=== PATIENT | male | born 1935 | race Asian ===

== ENCOUNTER 2020-03-29 21:02 | Inpatient (IN) | payer MEDICARE, MEDICAID ==
[~2020-03-29] VITALS: Ht 162.6 cm; Wt 61.7 kg
--- NOTE | 2020-03-29 21:15 | NUR ---
PT BIBDAUGHTER C/O COUGH AND LOW GRADE FEVER X3 DAYS. PER DAUGHTER, PT HAS ALSO BEEN WEEK FOR THE PAST FEW DAYS AND HAD NEAR SYNCOPE EPISODE CHAIR MECHANIC. PT AAOX4. VITAL SIGNS STABLE. O2 SAT 96% ROOM AIR. RESPIRATIONS EVEN AND UNLABORED. SKIN WARM AND INTACT. NO ACUTE DISTRESS NOTED AT THIS TIME. PLACED ON MONITOR AND PULSE OX, WILL CONTINUE TO MONITOR.
--- NOTE | 2020-03-29 21:48 | NUR ---
COVID SWAB COLLECTED AND SENT TO LAB
--- NOTE | 2020-03-29 21:58 | NUR ---
RADIOLOGY AT BEDSIDE FOR CXR
--- NOTE | 2020-03-29 22:00 | NUR ---
IV INITIATED RAC 20G. LABS DRAWN FROM SITE. BOBBIN WINDER AT BEDSIDE FOR COLLECTION. IV INTACT AND PATENT, PLACED ON SALINE LOCK
[2020-03-29 22:12] LABS: BASOPHILS % (AUTO) 0.1 % (0.0-2.0); HEMATOCRIT 40 % (39-51); HEMOGLOBIN 12.3 g/dL (13.5-17.5); LYMPHOCYTES % (AUTO) 15.3 % (20.0-44.0); MEAN CORPUSCULAR HGB CONC 31 g/dl (31.0-36.0); MEAN CORPUSCULAR VOLUME 69 fL (80-96); MONOCYTES # (AUTO) 0.5 /CMM (0.1-1.30); MONOCYTES % (AUTO) 7.9 % (2.0-12.0); NEUTROPHILS # (AUTO) 5.1 /CMM (1.8-8.9); NEUTROPHILS % (AUTO) 76.7 % (43.0-81.0); PLATELET COUNT (AUTO) 113 /CMM (150-450); RED BLOOD CELL COUNT(AUTO) 5.78 MIL/uL (4.5-6.0); WHITE BLOOD COUNT (AUTO) 6.6 K/uL (4.3-11.0)
[2020-03-29 22:46] LABS: CALCIUM, SERUM 8.5 mg/dL (8.5-10.1); CARBON DIOXIDE 26 mmol/L (21-32); CHLORIDE 95 mmol/L (98-107); CREATININE 1.6 mg/dL (0.6-1.3); GLUCOSE 149 mg/dL (74-106); POTASSIUM 4.5 mmol/L (3.5-5.1); SODIUM SERUM 129 mmol/L (136-145); UREA NITROGEN, BLOOD 31 mg/dL (7-18)
[2020-03-29 22:52] LABS: ALANINE AMINOTRANSFERASE 43 U/L (12-78); ALBUMIN 3.3 g/dL (3.4-5.0); ALKALINE PHOSPHATASE 81 U/L (46-116); ASPARTATE AMINOTRANSFERASE 46 U/L (15-37); BILIRUBIN,DIRECT 0.2 mg/dL (0.0-0.2); BILIRUBIN,TOTAL 0.3 mg/dL (0.2-1.0); LIPASE 221 U/L (73-393); TOTAL PROTEIN, SERUM 8.3 g/dL (6.4-8.2)
[2020-03-29 22:53] LABS: LYMPHOCYTES % (MANUAL) 5 % (16-48); MONOCYTES % (MANUAL) 8 % (0-11.0); NEUTROPHILS % (MANUAL) 87 (42-76)
[2020-03-29] MEDS ORDERED: IV NS 0.9% 1,000 ML IV PRN ×2 (23:00→23:30)
--- NOTE | 2020-03-29 23:01 | NUR ---
LAB CALLED REGARDING COVID (+) RESULT.
[2020-03-29] MEDS ORDERED: MAG HYDROX/AL HYDROX/SIMETH 30 ML UDC PO PRN (23:30)
[2020-03-29] MEDS ORDERED: ONDANSETRON HCL/PF 4 MG/2 ML VIAL IVP PRN (23:30)
[2020-03-29] MEDS ORDERED: Z GUARD REMEDY 2 OZ OINT TP PRN (23:30)
[2020-03-29] MEDS ORDERED: ZOLPIDEM TARTRATE 5 MG TABLET PO PRN (23:30)
[2020-03-29] MEDS ORDERED: HYDROCODONE/APAP 5/325MG TABLET PO PRN (23:30)
[2020-03-29] MEDS ORDERED: ACETAMINOPHEN 325 MG TABLET PO PRN (23:30)
[2020-03-29] MEDS ORDERED: DEXTROSE 50%-WATER 50 ML DISP.SYRIN IV PRN (23:30)
--- NOTE | 2020-03-29 23:36 | NUR ---
BED ASSIGNMENT 209-1
--- NOTE | 2020-03-29 23:44 | NUR ---
REPORT GIVEN TO KEY MCKEON FOR HEATHER; PT WILL BE TRANSPORTED TO 2ND FLOOR
[2020-03-29] MEDS ORDERED: ATOR10TA PO (23:57)
[2020-03-29] MEDS ORDERED: LISI-603 PO (23:57)
[2020-03-29] MEDS ORDERED: ICOS1CAP PO (23:57)
[2020-03-30 00:06] LABS: C-REACTIVE PROTEIN 18.4 mg/dL (0.0-0.9)
[2020-03-30 00:17] LABS: D-DIMER 1.24 mg/L(FEU (0.17-0.50)
[2020-03-30] MEDS ORDERED: DEXAMETHASONE SOD PHOSPHATE 10 MG/ML VIAL IV ONE (00:30)
--- NOTE | 2020-03-30 00:47 | NUR ---
PT TRANSPORTED TO 2ND FLOOR
--- NOTE | 2020-03-30 00:50 | NUR ---
TELE/RN ADMITTING NOTES: REPORT GIVEN BY ER NURSE SHIRA. PT. ADMITTED ON THE FLOOR AT 0050. A/OX4, VERBALLY RESPONSIVE AND ABLE TO MAKE NEEDS KNOWN. VERY HARD OF HEARING BELTRAN. EARS. NO C/O PAIN AT THIS TIME. SKIN INTACT, JUST SCATTERED MOLES. PT IS STABLE AT THIS TIME. INITIAL VS WNL. SAFETY MEASURES INITIATED, BED IN LOW, LOCKED POSITION WITH SR UPX2. BED ALARM ON. WILL CONTINUE TO MONITOR ACCORDINGLY.
[2020-03-30 01:00] VITALS: BP 137/75
--- NOTE | 2020-03-30 01:00 | NUR ---
TELE/RN NOTES: ON TELE MONITORING WITH READING OF SR. IV SITE ON THE RIGHT AC #20G. INTACT AND PATENT.
[2020-03-30] MEDS: HEPARIN SODIUM, PORCINE 5000 UNITS/1 ML VIAL SQ SCH ×3 (01:10→22:19)
[2020-03-30 04:00] VITALS: BP 140/71
[2020-03-30] MEDS: BLOOD SUGAR DIAGNOSTIC 1 EACH STRIP IN SCH ×4 (06:47→22:17)
[2020-03-30] MEDS: INSULIN REGULAR, HUMAN 100 UNIT/ML 3 ML VIAL SQ PRN ×4 (06:49→22:19)
--- NOTE | 2020-03-30 07:15 | NUR ---
RN Note Patient Received. Patient is noted in bed, awake, alert and oriented x4. Breathing even and non labored and continues on room air. Patient is noted with IV site to RAC 20G noted to be patent and intact. Patient continues on tele monitor and noted to be NSR. Skin is noted intact. All needs attended to promptly. Will continue plan of care as ordered.
[2020-03-30 07:16] LABS: BASOPHILS % (AUTO) 0.1 % (0.0-2.0); HEMATOCRIT 36 % (39-51); HEMOGLOBIN 11.3 g/dL (13.5-17.5); LYMPHOCYTES # (AUTO) 0.7 /CMM (0.8-4.8); LYMPHOCYTES % (AUTO) 13.1 % (20.0-44.0); MEAN CORPUSCULAR HGB CONC 31 g/dl (31.0-36.0); MEAN CORPUSCULAR VOLUME 69 fL (80-96); MONOCYTES # (AUTO) 0.2 /CMM (0.1-1.30); MONOCYTES % (AUTO) 3.6 % (2.0-12.0); NEUTROPHILS # (AUTO) 4.8 /CMM (1.8-8.9); NEUTROPHILS % (AUTO) 83.2 % (43.0-81.0); PLATELET COUNT (AUTO) 104 /CMM (150-450); RED BLOOD CELL COUNT(AUTO) 5.29 MIL/uL (4.5-6.0); WHITE BLOOD COUNT (AUTO) 5.7 K/uL (4.3-11.0)
[2020-03-30 07:35] LABS: BILIRUBIN,URINE NEGATIVE (NEGATIVE); COLOR,URINE YELLOW (YELLOW); LEUKOCYTE ESTERASE ,URINE NEGATIVE (NEGATIVE); NITRITE, URINE NEGATIVE (NEGATIVE); PH,URINE 5.5 (5.0-8.0); PROTEIN,URINE 100 mg/dl (NEGATIVE); UGLUCOSE NEGATIVE (NEGATIVE); UROBILINOGEN,URINE 0.2 EU/dL (0.2)
[2020-03-30 07:37] LABS: CALCIUM, SERUM 7.8 mg/dL (8.5-10.1); CREATININE 1.3 mg/dL (0.6-1.3); MAGNESIUM 1.8 mg/dL (1.8-2.4); PHOSPHORUS 2.9 mg/dL (2.5-4.9); POTASSIUM 4.6 mmol/L (3.5-5.1)
[2020-03-30 08:00] VITALS: BP 120/72
--- NOTE | 2020-03-30 08:00 | NUR ---
TELE/RN CLOSING NOTES: PT. REMAINS STABLE. NO SIGNIFICANT CHANGES IN CONDITION. ALL DUE MEDS GIVEN ORDERED. ALL NURSING NEEDS MET AND RENDERED, WILL CONTINUE PLAN OF CARE, ENDORSED TO DAY SHIFT FOR HEATHER.
[2020-03-30 08:20] LABS: BACTERIA,URINE Rare /HPF (None Seen); RBC,URINE 0-2 /HPF (0-2); SQUAMOUS EPITHELIAL CELL,UR Rare /HPF (None Seen); WBC,URINE 0-2 /HPF (0-3)
[2020-03-30] MEDS: GLUCERNA SHAKE 237 ML CAN PO SCH ×2 (09:59→17:09)
[2020-03-30 10:22] LABS: LYMPHOCYTES % (MANUAL) 10 % (16-48); MONOCYTES % (MANUAL) 3 % (0-11.0); NEUTROPHILS % (MANUAL) 87 (42-76)
[2020-03-30 12:00] VITALS: BP 127/60
[2020-03-30 16:00] VITALS: BP 109/55
--- NOTE | 2020-03-30 19:42 | NUR ---
RN NOTE Patient is noted in bed, awake, alert and oriented x4. Patient is able to make needs known. Breathing is even and non labored and continues on room air. No signs of acute distress or shortness of breath noted. Patient is noted with IV site to RAC 20G noted to be patent and intact. No signs of infiltration noted. No fever noted. All medications administered as per order. Accu checks rendered with insulin administered as per order. Safety precautions in place with bed in lowest position and locked. Call light within reach. All needs attended to promptly. Will endorse to continue plan of care as ordered.
[2020-03-30 20:00] VITALS: BP 114/63
[2020-03-31] VITALS (7 sets, daily range): BP systolic 124–141; BP diastolic 60–93
[2020-03-31] MEDS: BLOOD SUGAR DIAGNOSTIC 1 EACH STRIP IN SCH ×4 (07:09→22:35)
--- NOTE | 2020-03-31 07:47 | NUR ---
TECHNICAL LEAD OPENING NOTES RECEIVED PATIENT IN BED, AWAKE, A/O X4. PATIENT ON ROOM AIR AT THIS TIME; BREATHING IS EVEN AND UNLABORED, NO SOB NOTED AT THIS TIME. NO COMPLAINS OF PAIN. RAC IV ACCESS G # 20 PRESENT AND INTACT. SAFETY PRECAUTIONS IN PLACE; BED IN LOW POSITION AND LOCKED, RAILS UP X2, CALL LIGHT WITHIN REACH. WILL CONTINUE TO MONITOR PATIENT.
[2020-03-31 08:11] LABS: CALCIUM, SERUM 8.9 mg/dL (8.5-10.1); CREATININE 1.2 mg/dL (0.6-1.3); POTASSIUM 4.6 mmol/L (3.5-5.1)
[2020-03-31] MEDS: GLUCERNA SHAKE 237 ML CAN PO SCH ×2 (08:26→16:13)
[2020-03-31] MEDS: HEPARIN SODIUM, PORCINE 5000 UNITS/1 ML VIAL SQ SCH ×2 (08:30→21:36)
--- NOTE | 2020-03-31 11:30 | NUR ---
PIT CLERK NOTES PATIENT DEVELOPED FEVER 102 HR 112 O2 INCREASED TO 4 LPM VIA NASAL CANULA. PRN TYLENOL GIVEN.
[2020-03-31] MEDS: DOXYCYCLINE HYCLATE (100 MG) 100 MG TABLET PO SCH ×2 (13:02→21:32)
[2020-03-31] MEDS: DEXAMETHASONE SOD PHOSPHATE 10 MG/ML VIAL IV SCH (13:02)
[2020-03-31] MEDS: CEFTRIAXONE 1 G in IV D5W 50 ML IV SCH (13:38)
--- NOTE | 2020-03-31 19:17 | NUR ---
HONING MACHINE TRY OUT SETTER CLOSING NOTES PATIENT IN BED, AWAKE, A/O X4, RESTING. PATIENT ON OXYGEN THERAPY AT 4 LPM VIA NASAL CANULA; BREATHING IS EVEN AND UNLABORED, NO SOB NOTED AT THIS TIME. NO COMPLAINS OF PAIN DURING SHIFT. RAC IV ACCESS G # 20 PRESENT AND INTACT. ALL NEEDS ATTENDED THROUGHOUT THE DAY. SAFETY PRECAUTIONS IN PLACE; BED IN LOW POSITION AND LOCKED, RAILS UP X2, CALL LIGHT WITHIN REACH. WILL ENDORSE TO C UNIX DEVELOPER NURSE.
--- NOTE | 2020-03-31 19:30 | NUR ---
PNEUMATIC DEICER INSPECTOR OPENING NOTES RECIEVED PATIENT IN BED. A/OX3. ON OXYGEN 4L/MIN VIA NASAL CANNULA, RESPIRATIONS ARE EVEN AND UNLABORED. NO S/S SOB NOTED. NO C/O PAIN AT THIS TIME. EXTERNAL TELE MONITOR READS SINUS RHYTHM HR 66. IN NO APPARENT DISTRESS. IV ACCESS IN RAC#20 PATENT AND SALINE LOCKED. BED IS LOW AND LOCKED, HOB ELEVATED IN SEMI FOWLERS, SIDE RAIL UP X2, CALL LIGHT WITHIN REACH. BED ALARM ON. WILL CONTINUE TO MONITOR T/O SHIFT.
--- NOTE | 2020-03-31 21:00 | NUR ---
telesales advisor note patient moved from room 209-1 to room 202. patient is a fall risk and hard of hearing. all belongings moved with patient.
[2020-03-31] MEDS: INSULIN REGULAR, HUMAN 100 UNIT/ML 3 ML VIAL SQ PRN (22:41)
[2020-04-01] VITALS: BP 153/85
[2020-04-01 04:00] VITALS: BP 131/64
--- NOTE | 2020-04-01 06:43 | NUR ---
FUEL CELL BATTERY TECHNICIAN CLOSING NOTES PATIENT RESTING IN BED. A/OX3. REMAINS ON OXYGEN 4L/MIN VIA NASAL CANNULA,NO RESP DISTRES. NO PAIN. EXTERNAL TELE MONITOR READS SINUS RHYTHM. NO DISTRESS. IV ACCESS MAINTAINED IN RAC#20 . BED REMAINS LOW AND LOCKED, HOB ELEVATED IN SEMI FOWLERS, SIDE RAIL UP X2, CALL LIGHT WITHIN REACH. BED ALARM ON. WILL ENDORSE TO NEXT SHIFT.
[2020-04-01] MEDS: BLOOD SUGAR DIAGNOSTIC 1 EACH STRIP IN SCH ×4 (06:54→22:17)
--- NOTE | 2020-04-01 06:55 | NUR ---
telephone operator note patient blood sugar 151. refuse inulsin coverage. he explained his doctor wants his blood sugar 80-150. will endorse to next shift.
[2020-04-01 07:10] LABS: HEMATOCRIT 39 % (39-51); HEMOGLOBIN 12.2 g/dL (13.5-17.5); LYMPHOCYTES # (AUTO) 0.7 /CMM (0.8-4.8); LYMPHOCYTES % (AUTO) 4.5 % (20.0-44.0); MEAN CORPUSCULAR HGB CONC 31 g/dl (31.0-36.0); MEAN CORPUSCULAR VOLUME 68 fL (80-96); MONOCYTES # (AUTO) 1.1 /CMM (0.1-1.30); MONOCYTES % (AUTO) 6.3 % (2.0-12.0); NEUTROPHILS # (AUTO) 14.8 /CMM (1.8-8.9); NEUTROPHILS % (AUTO) 89.2 % (43.0-81.0); PLATELET COUNT (AUTO) 168 /CMM (150-450); RED BLOOD CELL COUNT(AUTO) 5.71 MIL/uL (4.5-6.0); WHITE BLOOD COUNT (AUTO) 16.6 K/uL (4.3-11.0)
--- NOTE | 2020-04-01 07:30 | NUR ---
PROTECTIVE CLOTHING ISSUER NOTES PT IN BED, AWAKE, ALERT AND ORIENTED, NO COMPLAINT OF PAIN, NOT IN DISTRESS, ON O2 AT 4LPM VIA N/C, NO SOB NOTED, CALL LIGHT WITHIN REACH, NEEDS ATTENDED.
[2020-04-01 07:35] LABS: CALCIUM, SERUM 8.7 mg/dL (8.5-10.1); POTASSIUM 4.4 mmol/L (3.5-5.1)
[2020-04-01 08:14] VITALS: BP 130/77
[2020-04-01] MEDS: CEFTRIAXONE 1 G in IV D5W 50 ML IV SCH (09:50)
[2020-04-01] MEDS: HEPARIN SODIUM, PORCINE 5000 UNITS/1 ML VIAL SQ SCH ×2 (09:51→22:25)
[2020-04-01] MEDS: DEXAMETHASONE SOD PHOSPHATE 10 MG/ML VIAL IV SCH (09:51)
[2020-04-01] MEDS: DOXYCYCLINE HYCLATE (100 MG) 100 MG TABLET PO SCH ×2 (09:51→22:25)
[2020-04-01] MEDS: GLUCERNA SHAKE 237 ML CAN PO SCH ×2 (10:06→17:00)
[2020-04-01 11:10] LABS: LYMPHOCYTES % (MANUAL) 3 % (16-48); MONOCYTES % (MANUAL) 5 % (0-11.0); NEUTROPHILS % (MANUAL) 92 (42-76)
[2020-04-01] MEDS: INSULIN REGULAR, HUMAN 100 UNIT/ML 3 ML VIAL SQ PRN ×3 (12:11→22:33)
[2020-04-01 12:13] VITALS: BP_SYST 119; BP_SYST 146; BP_DIAS 79; BP_DIAS 86
[2020-04-01 16:29] VITALS: BP 122/70
--- NOTE | 2020-04-01 18:30 | NUR ---
BUTTON STATION WORKER NOTES PT IN BED, RESTING, NO SIGN OF PAIN, NO SOB NOTED, SEEN BY DR. MEDINA, SEEN BY ID, PLAN OF CARE DISCUSSED WITH DAUGHTER MARTIN OVER THE PHONE, VERBALIZED UNDERSTANDING, ASSISTED WITH MEALS, PM CARE PROVIDED.
--- NOTE | 2020-04-01 19:30 | NUR ---
CEMENT CRUSHER OPERATOR OPENING NOTES RECEIVED PATIENT IN BED. A/OX3. ON OXYGEN 4L/MIN VIA NASAL CANNULA, RESPIRATIONS ARE EVEN AND UNLABORED. NO S/S SOB NOTED. NO C/O PAIN AT THIS TIME. EXTERNAL TELE MONITOR READS SINUS RHYTHM HR 89. IN NO APPARENT DISTRESS. IV ACCESS IN RAC#20 RUNNING NS @20ML/HR. BED IS LOW AND LOCKED, HOB ELEVATED IN SEMI FOWLERS, SIDE RAIL UP X2, CALL LIGHT WITHIN REACH. WILL CONTINUE TO MONITOR T/O SHIFT.
[2020-04-01 20:00] VITALS: BP 125/76
[2020-04-02] VITALS: BP_SYST 125; BP_DIAS 74; BP_DIAS 78
[2020-04-02 04:00] VITALS: BP 132/69
--- NOTE | 2020-04-02 06:20 | NUR ---
satellite television installer note daughter Romina called to inform me to endorse to day shift RN to tell infectious disease doctor that she is ok with her father getting investigational drug remdesivir and convolescent plasma. she also wanted to inform us that patient needs thickener with water because he chokes on water and they use thickener at home. will endorse to day.
[2020-04-02 06:35] LABS: BASOPHILS % (AUTO) 0.1 % (0.0-2.0); HEMATOCRIT 40 % (39-51); HEMOGLOBIN 12.5 g/dL (13.5-17.5); LYMPHOCYTES # (AUTO) 0.8 /CMM (0.8-4.8); LYMPHOCYTES % (AUTO) 4.4 % (20.0-44.0); MEAN CORPUSCULAR HGB CONC 31 g/dl (31.0-36.0); MEAN CORPUSCULAR VOLUME 69 fL (80-96); MONOCYTES # (AUTO) 1.3 /CMM (0.1-1.30); MONOCYTES % (AUTO) 7.2 % (2.0-12.0); NEUTROPHILS # (AUTO) 15.7 /CMM (1.8-8.9); NEUTROPHILS % (AUTO) 88.3 % (43.0-81.0); PLATELET COUNT (AUTO) 190 /CMM (150-450); RED BLOOD CELL COUNT(AUTO) 5.86 MIL/uL (4.5-6.0); WHITE BLOOD COUNT (AUTO) 17.8 K/uL (4.3-11.0)
[2020-04-02] MEDS: BLOOD SUGAR DIAGNOSTIC 1 EACH STRIP IN SCH ×4 (06:36→22:21)
[2020-04-02] MEDS: INSULIN REGULAR, HUMAN 100 UNIT/ML 3 ML VIAL SQ PRN ×4 (06:41→22:23)
--- NOTE | 2020-04-02 07:10 | NUR ---
TRAINING MGR CLOSING NOTES PATIENT RESTING IN BED. A/OX3. REMAINS ON OXYGEN 4L/MIN VIA NASAL CANNULA,NO RESP DISTRESS. NO PAIN. EXTERNAL TELE MONITOR READS SINUS RHYTHM. NO DISTRESS. IV ACCESS MAINTAINED IN RAC#20 RUNNING NS@20ML/HR. BED REMAINS LOW AND LOCKED, HOB ELEVATED IN SEMI FOWLERS, SIDE RAIL UP X2, CALL LIGHT WITHIN REACH. BED ALARM ON. WILL ENDORSE TO NEXT SHIFT.
--- NOTE | 2020-04-02 07:30 | NUR ---
PT RECEIVED RESTING COMFORTABLY IN BED WITH EYES CLOSED. NO S/S OR C/O PAIN OR DISTRESS NOTED. SIDE RAILS UP X2, CALL LIGHT LEFT WITHIN REACH. WILL CONTINUE PLAN OF CARE.
[2020-04-02] MEDS: CEFTRIAXONE 1 G in IV D5W 50 ML IV SCH (09:04)
[2020-04-02] MEDS: HEPARIN SODIUM, PORCINE 5000 UNITS/1 ML VIAL SQ SCH (09:05)
[2020-04-02] MEDS: DOXYCYCLINE HYCLATE (100 MG) 100 MG TABLET PO SCH ×2 (09:05→21:14)
[2020-04-02] MEDS: DEXAMETHASONE SOD PHOSPHATE 10 MG/ML VIAL IV SCH (09:05)
[2020-04-02] MEDS: GLUCERNA SHAKE 237 ML CAN PO SCH ×2 (10:21→17:22)
--- NOTE | 2020-04-02 11:00 | NUR ---
MAINTENANCE MECHANIC AT BEDSIDE
[2020-04-02 11:07] LABS: ABG BASE EXCESS -1.9 mmol/L; ABG OXYGEN SATURATION 86.6 % (92.0-98.5); ABG PCO2 31.8 mmHg (35.0-45.0); ABG PH 7.446 (7.350-7.450); ABG PO2 47.7 mmHg (75.0-100.0); AaDO2 172.1 mmHg; COHb 0.7 % (0.5-1.5); MetHb 0.4 % (0.0-1.5); O2Hb 85.6 % (94.0-97.0); SITE, ABG Left Radial; VENT MODE, BG 4L NC
--- NOTE | 2020-04-02 11:15 | NUR ---
AT BEDSIDE DR TAYLOR
[2020-04-02] MEDS ORDERED: ACETAMINOPHEN 650 MG/20.3 ML UDC PO ONE (16:00)
[2020-04-02] MEDS ORDERED: diphenhydrAMINE HCL 50 MG/ML VIAL IV ONE (16:00)
[2020-04-02 16:05] LABS: ABG BASE EXCESS 0.6 mmol/L; ABG OXYGEN SATURATION 92.8 % (92.0-98.5); ABG PCO2 35.6 mmHg (35.0-45.0); ABG PH 7.451 (7.350-7.450); AaDO2 325.6 mmHg; COHb 0.4 % (0.5-1.5); MetHb 0.3 % (0.0-1.5); O2Hb 92.2 % (94.0-97.0); SITE, ABG Left Radial; VENT MODE, BG 10L SIMPLE MASK
[2020-04-02 16:16] LABS: ALBUMIN 2.4 g/dL (3.4-5.0); BILIRUBIN,DIRECT 0.1 mg/dL (0.0-0.2); BILIRUBIN,TOTAL 0.2 mg/dL (0.2-1.0); CALCIUM, SERUM 8.7 mg/dL (8.5-10.1); CREATININE 1.2 mg/dL (0.6-1.3); POTASSIUM 4.4 mmol/L (3.5-5.1); TOTAL PROTEIN, SERUM 7.7 g/dL (6.4-8.2)
[2020-04-02] MEDS ORDERED: APIXABAN 2.5 MG TABLET PO SCH (17:00)
[2020-04-02] MEDS ORDERED: TOCILIZUMAB 400 MG in IV NS 0.9% 80 ML IV ONE (17:00)
--- NOTE | 2020-04-02 18:06 | NUR ---
CHANGE OF SHIFT REPORT PT RESTING COMFORTABLY IN BED WITH EYES CLOSED. NO S/S OR C/O PAIN OR DISTRESS NOTED. SIDE RAILS UP X2, CALL LIGHT LEFT WITHIN REACH. PT KEPT CLEAN, DRY, AND COMFORTABLE. NO SIGNIFICANT CHANGES SINCE PREVIOUS SHIFT. WILL GIVE REPORT TO JEREMIAH MCKEON.
--- NOTE | 2020-04-02 19:00 | NUR ---
RN NOTE RECEIVED PATIENT IN BED, ON SEMI MARIE'S. PATIENT IN NO S/SX OF ACUTE DISTRESS AT THIS TIME. PATIENT'S BREATHING IS EVEN AND UNLABORED. PATIENT IS ON 10 L OF OXYGEN VIA OXYGEN MASK, TOLERATING WELL, O2 SATURATION AT 95%. PATIENT ON TELE MONITOR READING SR, HR IS 82. NOTED IV SITE AT RAC 20G, AND R WRIST 20G, PATENT AND FLUSHING WELL, NO S/S OF INFECTION OR INFILTRATION. PATIENT IS CONTINENT WITH URINAL AT BEDSIDE, MODERATE AMOUNT OF CLEAR, MARIA DOLORES URINE WAS NOTED. SAFETY MEASURES IMPLEMENTED PER PROTOCOL. PATIENT BED ALARM IS ON. HEAD OF BED ELEVATED. BED IS LOCKED, IN LOWEST POSITION AND SIDE RAILS UP. CALL LIGHT WITHIN REACH OF THE PATIENT. WILL CONTINUE TO MONITOR AND REASSESS FOR ANY CHANGES.
[2020-04-02 20:00] VITALS: BP 123/73
[2020-04-02] MEDS ORDERED: ENOXAPARIN SODIUM 40 MG/0.4 ML DISP.SYRIN SQ SCH (21:00)
[2020-04-02 21:32] LABS: BILIRUBIN,URINE NEGATIVE (NEGATIVE); COLOR,URINE YELLOW (YELLOW); LEUKOCYTE ESTERASE ,URINE NEGATIVE (NEGATIVE); NITRITE, URINE NEGATIVE (NEGATIVE); PH,URINE 5.5 (5.0-8.0); PROTEIN,URINE 30 mg/dl (NEGATIVE); UGLUCOSE 250 MG/DL mg/dL (NEGATIVE); UROBILINOGEN,URINE 0.2 EU/dL (0.2)
[2020-04-02 21:38] LABS: BACTERIA,URINE Few /HPF (None Seen); RBC,URINE 0-2 /HPF (0-2); SQUAMOUS EPITHELIAL CELL,UR Few /HPF (None Seen); WBC,URINE 0-2 /HPF (0-3); YEAST,URINE Few /HPF (None Seen)
[2020-04-02] MEDS: PANTOPRAZOLE 40 MG VIAL IV SCH (21:57)
[2020-04-02 22:46] LABS: BASOPHILS % (AUTO) 0.1 % (0.0-2.0); HEMATOCRIT 37 % (39-51); HEMOGLOBIN 11.3 g/dL (13.5-17.5); LYMPHOCYTES # (AUTO) 0.5 /CMM (0.8-4.8); LYMPHOCYTES % (AUTO) 3.5 % (20.0-44.0); MEAN CORPUSCULAR HGB CONC 31 g/dl (31.0-36.0); MEAN CORPUSCULAR VOLUME 69 fL (80-96); MONOCYTES % (AUTO) 6.5 % (2.0-12.0); NEUTROPHILS # (AUTO) 13.2 /CMM (1.8-8.9); NEUTROPHILS % (AUTO) 89.9 % (43.0-81.0); PLATELET COUNT (AUTO) 197 /CMM (150-450); RED BLOOD CELL COUNT(AUTO) 5.36 MIL/uL (4.5-6.0); WHITE BLOOD COUNT (AUTO) 14.7 K/uL (4.3-11.0)
[2020-04-03] VITALS (13 sets, daily range): BP systolic 114–144; BP diastolic 60–83
[2020-04-03 06:42] LABS: ALBUMIN 2.2 g/dL (3.4-5.0); BILIRUBIN,TOTAL 0.3 mg/dL (0.2-1.0); CALCIUM, SERUM 8.5 mg/dL (8.5-10.1); CREATININE 1.2 mg/dL (0.6-1.3); POTASSIUM 4.3 mmol/L (3.5-5.1); TOTAL PROTEIN, SERUM 7.2 g/dL (6.4-8.2)
[2020-04-03 06:49] LABS: BASOPHILS % (AUTO) 0.1 % (0.0-2.0); HEMATOCRIT 38 % (39-51); HEMOGLOBIN 11.7 g/dL (13.5-17.5); LYMPHOCYTES # (AUTO) 0.7 /CMM (0.8-4.8); LYMPHOCYTES % (AUTO) 4.3 % (20.0-44.0); MEAN CORPUSCULAR HGB CONC 31 g/dl (31.0-36.0); MEAN CORPUSCULAR VOLUME 69 fL (80-96); MONOCYTES # (AUTO) 1.2 /CMM (0.1-1.30); MONOCYTES % (AUTO) 7.9 % (2.0-12.0); NEUTROPHILS # (AUTO) 13.8 /CMM (1.8-8.9); NEUTROPHILS % (AUTO) 87.7 % (43.0-81.0); PLATELET COUNT (AUTO) 227 /CMM (150-450); RED BLOOD CELL COUNT(AUTO) 5.53 MIL/uL (4.5-6.0); WHITE BLOOD COUNT (AUTO) 15.8 K/uL (4.3-11.0)
[2020-04-03] MEDS: INSULIN REGULAR, HUMAN 100 UNIT/ML 3 ML VIAL SQ PRN ×4 (07:29→21:08)
[2020-04-03] MEDS: BLOOD SUGAR DIAGNOSTIC 1 EACH STRIP IN SCH ×4 (07:33→21:06)
--- NOTE | 2020-04-03 08:00 | NUR ---
GUEST HISTORY CLERK OPENING NOTES RECEIVED PATIENT IN BED. A/OX3. ON OXYGEN 4L/MIN VIA NASAL CANNULA, O2 SAT 88-90% RESPIRATIONS ARE EVEN AND UNLABORED. NO S/S SOB NOTED. NO C/O PAIN AT THIS TIME. EXTERNAL TELE MONITOR READS SINUS RHYTHM HR 77. IN NO APPARENT DISTRESS. IV ACCESS IN RAC#20 .BED IS LOW AND LOCKED, HOB ELEVATED IN SEMI FOWLERS, SIDE RAIL UP X2, CALL LIGHT WITHIN REACH. WILL CONTINUE TO MONITOR T/O SHIFT.
[2020-04-03] MEDS: CEFTRIAXONE 1 G in IV D5W 50 ML IV SCH (09:46)
[2020-04-03] MEDS: PANTOPRAZOLE 40 MG VIAL IV SCH (09:46)
[2020-04-03] MEDS: DOXYCYCLINE HYCLATE (100 MG) 100 MG TABLET PO SCH (09:46)
[2020-04-03] MEDS: DEXAMETHASONE SOD PHOSPHATE 10 MG/ML VIAL IV SCH (09:46)
[2020-04-03] MEDS: GLUCERNA SHAKE 237 ML CAN PO SCH ×2 (09:47→17:23)
[2020-04-03 11:31] LABS: LYMPHOCYTES % (MANUAL) 5 % (16-48); MONOCYTES % (MANUAL) 8 % (0-11.0); NEUTROPHILS % (MANUAL) 87 (42-76)
[2020-04-03] MEDS ORDERED: REMDESIVIR (CHARGED) 200 MG, *LOADING DOSE 1 EA in IV NS 0.9% 210 ML IV ONE (12:00)
[2020-04-03] MEDS: ENOXAPARIN SODIUM 40 MG/0.4 ML DISP.SYRIN SQ SCH (17:52)
--- NOTE | 2020-04-03 19:00 | NUR ---
TELE/RN OPENING NOTES: RECEIVED PATIENT RESTING IN BED, A/OX3-4. NOTED WITH HARD OF HEARING BOTH EARS, CURRENTLY ON OXYGEN 4L/MIN VIA NASAL CANNULA, SATURATING @ 90% RESPIRATIONS ARE EVEN AND UNLABORED. NO S/S SOB NOTED. NO C/O PAIN AT THIS TIME. EXTERNAL TELE MONITOR READS SINUS RHYTHM HR 60S. NO S/S OF ACUTE DISTRESS. IV ACCESS IN RAC#20 AND RIGHT WRIST #20G INATCT AND PATENT. SAFETY MEASURES ARE IN PLACE. BED IS LOW AND LOCKED, HOB ELEVATED IN SEMI FOWLERS, SIDE RAIL UP X2, CALL LIGHT WITHIN REACH. WILL CONTINUE TO MONITOR THROUGHOUT THE SHIFT.
--- NOTE | 2020-04-03 20:15 | NUR ---
TELE/RN NOTES: CONVALESCENT PLASMA NOW TRANSFUSING AT 100MLS/HR. WITNESSED , COSIGNED AND VERIFIED WITH ANOTHER RN, QUIQUE. STARTED SLOW TO OBSERVE ANY ADVERSE EFFECTS. INITIAL VS TAKEN. TEMP: 97.5 ORALLY, BP: 122/69 HR: 84. RR: 18 AND SATURATING AT 93% WITH 4L OXYGEN VIA NC. WILL KEEP MONITORING Q15MIN.
--- NOTE | 2020-04-03 20:30 | NUR ---
TELE/RN NOTES: CONVALESCENT PLASMA TRANSFUSING AT 100MLS/HR. NO S/S OF ADVERSE EFFECTS. NO ALLERGIC REACTIONS. VS STABLE AND WNL. TEMP: 97.9 ORALLY, BP: 124/71 HR: 61 RR: 18. WILL KEEP MONITORING Q15MIN.
[2020-04-03] MEDS: PANTOPRAZOLE 40 MG/PACK PACK PO SCH (20:40)
--- NOTE | 2020-04-03 20:45 | NUR ---
TELE/RN NOTES: CONVALESCENT PLASMA TRANSFUSING. NO S/S OF ADVERSE EFFECTS. NO S/S OF INFILTRATION ON THE IV SITE, NO ALLERGIC REACTIONS. VS STABLE AND WNL. TEMP: 97.9 ORALLY, BP: 124/71 HR: 61 RR: 18. WILL KEEP MONITORING Q15MIN.
--- NOTE | 2020-04-03 21:00 | NUR ---
TELE/RN NOTES: CONVALESCENT PLASMA TRANSFUSING. NO S/S OF ADVERSE EFFECTS. NO S/S OF INFILTRATION ON THE IV SITE, NO ALLERGIC REACTIONS. VS STABLE AND WNL. TEMP: 97.6 ORALLY, BP: 125/70 HR: 67 RR: 18. WILL KEEP MONITORING Q15MIN.
--- NOTE | 2020-04-03 21:30 | NUR ---
TELE/RN NOTES: CONVALESCENT PLASMA TRANSFUSING. NO S/S OF ADVERSE EFFECTS. NO S/S OF INFILTRATION ON THE IV SITE, NO ALLERGIC REACTIONS. VS STABLE AND WNL. TEMP: 97.6 ORALLY, BP: 122/74 HR: 69 RR: 18. WILL KEEP MONITORING Q15MIN.
--- NOTE | 2020-04-03 22:05 | NUR ---
TELE/RN NOTES: CONVALESCENT PLASMA COMPLETELY TRANSFUSED. NO S/S OF ADVERSE EFFECTS. NO S/S OF INFILTRATION ON THE IV SITE, NO ALLERGIC REACTIONS. VS STABLE AND WNL. TEMP: 97.9 ORALLY, BP: 1236/81 HR: 71 RR: 18. PT IS STABLE AND NO S/S OF DISTRESS. PT IS COMFORTABLY RESTING RIGHT NOW. WILL CONTINUE TO MONITOR.
[2020-04-04] VITALS (9 sets, daily range): BP systolic 107–147; BP diastolic 52–80
--- NOTE | 2020-04-04 03:30 | NUR ---
TELE/RN NOTES: PT STARTED TO DESAT AT 84% WITH LABORED BREATHING. CURRENTLY ON 3L AND INCREASED TO 6L. FOR NOW. SLOWLY INCREASING WILL CONT. TO MONITOR.
[2020-04-04] MEDS: ENOXAPARIN SODIUM 40 MG/0.4 ML DISP.SYRIN SQ SCH ×2 (06:18→18:20)
[2020-04-04] MEDS: BLOOD SUGAR DIAGNOSTIC 1 EACH STRIP IN SCH ×4 (06:39→21:07)
[2020-04-04] MEDS: INSULIN REGULAR, HUMAN 100 UNIT/ML 3 ML VIAL SQ PRN ×4 (06:40→21:09)
--- NOTE | 2020-04-04 07:00 | NUR ---
TELE/RN CLOSING NOTES: PATIENT REMAINS RESTING IN BED, A/OX3-4. VERBALLY RESPONSIVE AND ABLE TO MAKE NEEDS KNOWN. REMAINED STABEL THROUGHOUT THE NIGHT. S/P CONVALESCENT PLASMA YESTERDAY. CURRENTLY ON OXYGEN 5L/MIN VIA NASAL CANNULA, SATURATING @ 93% RESPIRATIONS ARE EVEN AND UNLABORED. NO S/S SOB NOTED. NO C/O PAIN AT THIS TIME. EXTERNAL TELE MONITOR READS SINUS RHYTHM. NO S/S OF ACUTE DISTRESS. IV ACCESS IN RAC#20 AND RIGHT WRIST #20G INTACT AND PATENT. SAFETY MEASURES ARE IN PLACE. BED IS LOW AND LOCKED, HOB ELEVATED IN SEMI FOWLERS, SIDE RAIL UP X2, CALL LIGHT WITHIN REACH. ALL NURSING NEEDS MET AND RENDERED, ALL DUE MEDS GIVEN ORDERED. WILL ENDORSE TO DAY SHIFT FOR HEATHER.
--- NOTE | 2020-04-04 07:02 | NUR ---
RN OPENING NOTES RECEIVED PT AWAKE AT THIS TIME. PT IS AOX3-4. NO SOB NOTED, NO S/S OF ANY APPARENT DISTRESS NOTED. NO C/O PAIN NOTED AT THIS TIME. RESPIRATIONS ARE EVEN AND UNLABORED. PT NOTED ON OXYGEN @4LPM VIA NC. PT ON EXTERNAL GUARD RANGE READING SR IN THE 80s. IV ACCESS NOTED IN RIGHT WRIST G#20 AND RAC G # 20, BOTH INTACT, PATENT AND FLUSHING WELL. SAFETY PRECAUTION IN PLACE AND MAINTAINED AT ALL TIMES. BED IN LOWEST LOCKED POSITION, HOB ELEVATED, SIDE RAILS UP X 2, CALL LIGHT AND TABLE WITHIN REACH . WILL CONTINUE WITH PLAN OF CARE .
[2020-04-04 08:02] LABS: BASOPHILS % (AUTO) 0.1 % (0.0-2.0); HEMATOCRIT 37 % (39-51); HEMOGLOBIN 11.3 g/dL (13.5-17.5); LYMPHOCYTES # (AUTO) 0.9 /CMM (0.8-4.8); LYMPHOCYTES % (AUTO) 6.5 % (20.0-44.0); MEAN CORPUSCULAR HGB CONC 31 g/dl (31.0-36.0); MEAN CORPUSCULAR VOLUME 69 fL (80-96); MONOCYTES # (AUTO) 1.4 /CMM (0.1-1.30); NEUTROPHILS # (AUTO) 11.7 /CMM (1.8-8.9); NEUTROPHILS % (AUTO) 83.4 % (43.0-81.0); PLATELET COUNT (AUTO) 268 /CMM (150-450); RED BLOOD CELL COUNT(AUTO) 5.36 MIL/uL (4.5-6.0); WHITE BLOOD COUNT (AUTO) 14.1 K/uL (4.3-11.0)
[2020-04-04 08:25] LABS: ALBUMIN 2.3 g/dL (3.4-5.0); BILIRUBIN,DIRECT 0.2 mg/dL (0.0-0.2); BILIRUBIN,TOTAL 0.3 mg/dL (0.2-1.0); TOTAL PROTEIN, SERUM 6.9 g/dL (6.4-8.2)
[2020-04-04] MEDS: GLUCERNA SHAKE 237 ML CAN PO SCH ×2 (08:51→17:00)
[2020-04-04] MEDS: DEXAMETHASONE SOD PHOSPHATE 10 MG/ML VIAL IV SCH (09:26)
[2020-04-04] MEDS: PANTOPRAZOLE 40 MG/PACK PACK PO SCH ×2 (09:26→21:03)
--- NOTE | 2020-04-04 10:00 | NUR ---
PT TITRATED ON OXYGEN 3LP VIA NC PER DR ELENA'S ORDERS. WILL CONTINUE TO MONITOR
[2020-04-04] MEDS: REMDESIVIR (CHARGED) 100 MG in IV NS 0.9% 100 ML IV SCH (12:08)
[2020-04-04 14:01] LABS: LYMPHOCYTES % (MANUAL) 3 % (16-48); MONOCYTES % (MANUAL) 8 % (0-11.0); NEUTROPHILS % (MANUAL) 89 (42-76)
--- NOTE | 2020-04-04 19:53 | NUR ---
RN CLOSING NOTES PT AWAKE IN BED AT THIS TIME. PT REMAINED STABLE THROUGHOUT SHIFT. ALL CARE, NEED, MEDICATIONS AND TREATMENT ADMINISTERED ANTICIPATED PER ORDER. PT KEPT CLEAN AND DRY. ASPIRATION AND SAFETY PRECAUTION IN PLACE AND MAINTAINED AT ALL TIMES. BED IN LOWEST LOCKED POSITION, HOB ELEVATED, SIDE RAILS UP X 2, CALL LIGHT AND TABLE WITHIN REACH. ENDORSED TO NEWS PHOTOGRAPHER NURSE FOR HEATHER
--- NOTE | 2020-04-04 19:54 | NUR ---
TELE/RN OPENING NOTES: RECEIVED PATIENT RESTING IN BED, A/OX3-4. STILL NOTED WITH HARD OF HEARING BOTH EARS, CURRENTLY ON 4L OXYGEN VIA NASAL CANNULA, SATURATING WELL AT THIS TIME. RESPIRATIONS ARE EVEN AND UNLABORED. NO S/S SOB NOTED. NO C/O PAIN AT THIS TIME. EXTERNAL TELE MONITOR READS SINUS RHYTHM HR 80S. NO S/S OF ACUTE DISTRESS. IV ACCESS IN RAC#20 AND RIGHT WRIST #20G INTACT AND PATENT. SAFETY MEASURES ARE IN PLACE. BED IS LOW AND LOCKED, HOB ELEVATED IN SEMI FOWLERS, SIDE RAIL UP X2, CALL LIGHT WITHIN REACH. WILL CONTINUE TO MONITOR THROUGHOUT THE SHIFT.
[2020-04-05] VITALS: BP 143/74
[2020-04-05 04:00] VITALS: BP 157/70
[2020-04-05] MEDS: ENOXAPARIN SODIUM 40 MG/0.4 ML DISP.SYRIN SQ SCH ×2 (06:25→18:27)
[2020-04-05] MEDS: BLOOD SUGAR DIAGNOSTIC 1 EACH STRIP IN SCH ×4 (06:32→21:15)
[2020-04-05] MEDS: INSULIN REGULAR, HUMAN 100 UNIT/ML 3 ML VIAL SQ PRN ×4 (06:32→21:18)
--- NOTE | 2020-04-05 07:08 | NUR ---
TANKER SERVICE ATTENDANT OPENING NOTES RECEIVED PT AWAKE IN BED AT THIS TIME. PT TO VERBALIZE NEEDS. AOX3-4. HARD OF HEARING. NO SOB NOTED, NO S/S OF ANY APPARENT DISTRESS NOTED. NO C/O PAIN NOTED AT THIS TIME. RESPIRATIONS ARE EVEN AND UNLABORED WITH EQUAL RISE AND FALL IN CHEST. PT STABLE ON OXYGEN @3LPM VIA NC. PT NOTED ON EXTERNAL INSIDE SALES PROFESSIONAL READING SR 64.IV ACCESS NOTED IN LAC G#20 AND RIGHT WRIST G#20, BOTH INTACT, PATENT AND FLUSHING WELL. ASPIRATION, RESPIRATORY AND SAFETY PRECAUTION IN PLACE AND MAINTAINED AT ALL TIMES. BED IN LOWEST LOCKED POSITION, HOB ELEVATED, SIDE RAILS UP X 2, CALL LIGHT AND TABLE WITHIN REACH. WILL CONTINUE WITH PLAN OF CARE.
--- NOTE | 2020-04-05 07:08 | NUR ---
DIRECTOR OF FLIGHT OPERATIONS OPENING NOTES RECEIVED PT AWAKE IN BED AT THIS TIME. PT TO VERBALIZE NEEDS. AOX3-4. HARD OF HEARING. NO SOB NOTED, NO S/S OF ANY APPARENT DISTRESS NOTED. NO C/O PAIN NOTED AT THIS TIME. RESPIRATIONS ARE EVEN AND UNLABORED WITH EQUAL RISE AND FALL IN CHEST. PT STABLE ON OXYGEN @3LPM VIA NC. PT NOTED ON EXTERNAL WASTE MANAGEMENT ENGINEER READING SR 64.IV ACCESS NOTED IN LAC G#20 AND RIGHT WRIST G#20, BOTH INTACT, PATENT AND FLUSHING WELL. ASPIRATION, RESPIRATORY AND SAFETY PRECAUTION IN PLACE AND MAINTAINED AT ALL TIMES. BED IN LOWEST LOCKED POSITION, HOB ELEVATED, SIDE RAILS UP X 2, CALL LIGHT AND TABLE WITHIN REACH. WILL CONTINUE WITH PLAN OF CARE.
--- NOTE | 2020-04-05 07:43 | NUR ---
TELE/RN CLOSING NOTES: PATIENT REMAINS RESTING IN BED, A/OX3-4. REMAINED STABLE ALL NIGHT, VERBALLY RESPONSIVE AND ABLE TO MAKE NEEDS KNOWN. S/P CONVALESCENT PLASMA YESTERDAY. CURRENTLY ON OXYGEN 3L/MIN VIA NASAL CANNULA, SATURATING @ 94% RESPIRATIONS ARE EVEN AND UNLABORED. NO S/S SOB NOTED. NO C/O PAIN AT THIS TIME. EXTERNAL TELE MONITOR READS SINUS RHYTHM. NO S/S OF ACUTE DISTRESS. IV ACCESS IN RAC#20 AND RIGHT WRIST #20G INTACT AND PATENT. SAFETY MEASURES ARE IN PLACE. BED IS LOW AND LOCKED, HOB ELEVATED IN SEMI FOWLERS, SIDE RAIL UP X2, CALL LIGHT WITHIN REACH. ALL NURSING NEEDS MET AND RENDERED, ALL DUE MEDS GIVEN ORDERED. WILL CONTINUE PLAN OF CARE. ENDORSED TO DAYSHIFT RN.
[2020-04-05 08:00] VITALS: BP 129/64
[2020-04-05] MEDS: GLUCERNA SHAKE 237 ML CAN PO SCH ×2 (08:34→17:33)
[2020-04-05 08:39] LABS: BASOPHILS % (AUTO) 0.4 % (0.0-2.0); EOSINOPHILS % (AUTO) 0.1 % (0.0-6.0); HEMATOCRIT 40 % (39-51); HEMOGLOBIN 12.4 g/dL (13.5-17.5); LYMPHOCYTES % (AUTO) 8.4 % (20.0-44.0); MEAN CORPUSCULAR HGB CONC 31 g/dl (31.0-36.0); MEAN CORPUSCULAR VOLUME 69 fL (80-96); MONOCYTES # (AUTO) 1.1 /CMM (0.1-1.30); MONOCYTES % (AUTO) 9.6 % (2.0-12.0); NEUTROPHILS # (AUTO) 9.3 /CMM (1.8-8.9); NEUTROPHILS % (AUTO) 81.5 % (43.0-81.0); PLATELET COUNT (AUTO) 293 /CMM (150-450); RED BLOOD CELL COUNT(AUTO) 5.78 MIL/uL (4.5-6.0); WHITE BLOOD COUNT (AUTO) 11.4 K/uL (4.3-11.0)
[2020-04-05] MEDS: PANTOPRAZOLE 40 MG/PACK PACK PO SCH ×2 (09:24→21:14)
[2020-04-05] MEDS: DEXAMETHASONE SOD PHOSPHATE 10 MG/ML VIAL IV SCH (09:24)
[2020-04-05 10:18] LABS: ALBUMIN 2.5 g/dL (3.4-5.0); BILIRUBIN,TOTAL 0.4 mg/dL (0.2-1.0); CALCIUM, SERUM 8.8 mg/dL (8.5-10.1); CREATININE 1.2 mg/dL (0.6-1.3); POTASSIUM 4.4 mmol/L (3.5-5.1); TOTAL PROTEIN, SERUM 7.3 g/dL (6.4-8.2)
[2020-04-05] MEDS: REMDESIVIR (CHARGED) 100 MG in IV NS 0.9% 100 ML IV SCH (12:13)
[2020-04-05 14:03] LABS: LYMPHOCYTES % (MANUAL) 9 % (16-48); MONOCYTES % (MANUAL) 9 % (0-11.0); NEUTROPHILS % (MANUAL) 82 (42-76)
[2020-04-05 15:17] LABS: C-REACTIVE PROTEIN 3.3 mg/dL (0.0-0.9)
--- NOTE | 2020-04-05 19:00 | NUR ---
REFUSE DRIVER CLOSING NOTES PT AWAKE IN BED AT THIS TIME. PT REMAINED STABLE THROUGHOUT SHIFT. ALL CARE, NEED, MEDICATIONS AND TREATMENT ADMINISTERED ANTICIPATED PER ORDER. PT STABLE ON RA. PT KEPT CLEAN AND DRY SAFETY PRECAUTION IN PLACE AND MAINTAINED AT ALL TIMES. BED IN LOWEST LOCKED POSITION, HOB ELEVATED, SIDE RAILS UP X 2, CALL LIGHT AND TABLE WITHIN REACH. ENDORSED TO SPORTS ACTIVITIES FOUL JUDGE NURSE FOR HEATHER
--- NOTE | 2020-04-05 19:30 | NUR ---
BUSINESS ADMINISTRATION PROFESSOR OPENING NOTES RECEIVED PT AWAKE IN BED AT THIS TIME. PT TO VERBALIZE NEEDS. AOX3-4. HARD OF HEARING. NO SOB NOTED, NO S/S OF ANY APPARENT DISTRESS NOTED. NO C/O PAIN NOTED AT THIS TIME. RESPIRATIONS ARE EVEN AND UNLABORED WITH EQUAL RISE AND FALL IN CHEST. PT STABLE ON OXYGEN @5LPM VIA NC. PT NOTED ON EXTERNAL BOTTOM POLISHER READING SR 64.IV ACCESS NOTED IN LAC G#20 AND RIGHT WRIST G#20, BOTH INTACT, PATENT AND FLUSHING WELL. ASPIRATION, RESPIRATORY AND SAFETY PRECAUTION IN PLACE AND MAINTAINED AT ALL TIMES. BED IN LOWEST LOCKED POSITION, HOB ELEVATED, SIDE RAILS UP X 2, CALL LIGHT AND TABLE WITHIN REACH. WILL CONTINUE WITH PLAN OF CARE.
[2020-04-05 20:00] VITALS: BP 98/66
[2020-04-06] VITALS: BP 109/61
[2020-04-06 04:00] VITALS: BP 106/67
--- NOTE | 2020-04-06 06:09 | NUR ---
TELE/RN CLOSING NOTES: PATIENT REMAINS RESTING IN BED, A/OX3-4. REMAINED STABLE ALL NIGHT, VERBALLY RESPONSIVE AND ABLE TO MAKE NEEDS KNOWN. S/P CONVALESCENT PLASMA YESTERDAY. CURRENTLY ON OXYGEN 4L/MIN VIA NASAL CANNULA, SATURATING @ 94% RESPIRATIONS ARE EVEN AND UNLABORED. NO S/S SOB NOTED. NO C/O PAIN AT THIS TIME. EXTERNAL TELE MONITOR READS SINUS RHYTHM. NO S/S OF ACUTE DISTRESS. IV ACCESS IN RAC#20 AND RIGHT WRIST #20G INTACT AND PATENT. SAFETY MEASURES ARE IN PLACE. BED IS LOW AND LOCKED, HOB ELEVATED IN SEMI FOWLERS, SIDE RAIL UP X2, CALL LIGHT WITHIN REACH. ALL NURSING NEEDS MET AND RENDERED, ALL DUE MEDS GIVEN ORDERED. WILL CONTINUE PLAN OF CARE. WILL ENDORSE TO DAYSHIFT RN FOR HEATHER AND PLAN OF CARE.
[2020-04-06] MEDS: ENOXAPARIN SODIUM 40 MG/0.4 ML DISP.SYRIN SQ SCH ×2 (06:30→17:57)
[2020-04-06] MEDS: BLOOD SUGAR DIAGNOSTIC 1 EACH STRIP IN SCH ×4 (06:33→21:07)
[2020-04-06] MEDS: INSULIN REGULAR, HUMAN 100 UNIT/ML 3 ML VIAL SQ PRN ×4 (06:34→21:09)
[2020-04-06 06:53] LABS: BASOPHILS % (AUTO) 0.1 % (0.0-2.0); EOSINOPHILS % (AUTO) 0.6 % (0.0-6.0); HEMATOCRIT 40 % (39-51); HEMOGLOBIN 12.3 g/dL (13.5-17.5); LYMPHOCYTES % (AUTO) 8.9 % (20.0-44.0); MEAN CORPUSCULAR HGB CONC 31 g/dl (31.0-36.0); MEAN CORPUSCULAR VOLUME 69 fL (80-96); MONOCYTES % (AUTO) 8.9 % (2.0-12.0); NEUTROPHILS # (AUTO) 8.7 /CMM (1.8-8.9); NEUTROPHILS % (AUTO) 81.5 % (43.0-81.0); PLATELET COUNT (AUTO) 320 /CMM (150-450); RED BLOOD CELL COUNT(AUTO) 5.79 MIL/uL (4.5-6.0); WHITE BLOOD COUNT (AUTO) 10.7 K/uL (4.3-11.0)
[2020-04-06 07:17] LABS: ALBUMIN 2.4 g/dL (3.4-5.0); BILIRUBIN,DIRECT 0.2 mg/dL (0.0-0.2); BILIRUBIN,TOTAL 0.4 mg/dL (0.2-1.0)
[2020-04-06] MEDS: GLUCERNA SHAKE 237 ML CAN PO SCH ×2 (07:52→17:50)
[2020-04-06 08:00] VITALS: BP 103/67
--- NOTE | 2020-04-06 08:00 | NUR ---
TOP HAT BODY MAKER OPENING NOTE Patient is resting in bed, A/o x4, showing no signs of acute distress or SOB, saturating 94% on 3L NC. Patient denies any pain or discomfort at this time. Patient is able to ambulate to the bathroom independently. IV line is clean and intact flushing well. Bed is in lowest position, side rails x2 in upright position, call light is within reach, fall safety and aspiration precautions enforced. Will continue with plan of care.
[2020-04-06] MEDS: DEXAMETHASONE SOD PHOSPHATE 10 MG/ML VIAL IV SCH (08:02)
[2020-04-06] MEDS: PANTOPRAZOLE 40 MG/PACK PACK PO SCH ×2 (08:02→21:02)
[2020-04-06 09:57] LABS: MAGNESIUM 1.9 mg/dL (1.8-2.4); PHOSPHORUS 4.7 mg/dL (2.5-4.9)
[2020-04-06 10:34] LABS: LYMPHOCYTES % (MANUAL) 8 % (16-48); MONOCYTES % (MANUAL) 5 % (0-11.0); NEUTROPHILS % (MANUAL) 87 (42-76)
[2020-04-06] MEDS: REMDESIVIR (CHARGED) 100 MG in IV NS 0.9% 100 ML IV SCH (11:44)
[2020-04-06 11:52] VITALS: BP 121/82
--- NOTE | 2020-04-06 13:40 | NUR ---
CANDY STARCH MOLD PRINTER NOTE ON ROOM AIR, PATIENT'S SPO2 IS 88% AT REST.
[2020-04-06 16:47] VITALS: BP 111/62
--- NOTE | 2020-04-06 19:30 | NUR ---
TELE/RN NOTES RECEIVED PATIENT IN BED RESTING. PATIENT IS ALERT AND ORIENTED X 3. STATES NO PAIN AT THIS TIME. PATIENTS BREATHING IS EVEN AND UNLABORED. NO SIGNS OF RESPIRATORY DISTRESS NOTED. PATIENT HAD IV ACCESS ON RIGHT WRIST #20G AND LEFT AC #20G INTACT SL. . SAFETY MEASURES ARE IN PLACE, BED IS LOCKED AND PLACED IN THE LOWEST POSITION, CALL LIGHT IS WITHIN REACH. WILL CONTINUE TO MONITOR THROUGH OUT SHIFT.
--- NOTE | 2020-04-06 19:46 | NUR ---
REGISTERED ACCOUNT ADMINISTRATOR CLOSING NOTE Patient is resting in bed, A/o x4, showing no signs of acute distress or SOB, saturating 94% on 3L NC. Patient denies any pain or discomfort at this time. Patient is able to ambulate to the bathroom independently. IV line is clean and intact flushing well. All patient needs met, all due medications given, patient kept clean and dry throughout shift. Bed is in lowest position, side rails x2 in upright position, call light is within reach, fall safety and aspiration precautions enforced. Will endorse to asbestos hazard abatement worker for HEATHER.
[2020-04-06 20:17] VITALS: BP 100/53
[2020-04-07 01:34] VITALS: BP 131/75
[2020-04-07 04:59] VITALS: BP 126/68
[2020-04-07 06:24] LABS: BASOPHILS % (AUTO) 0.3 % (0.0-2.0); HEMATOCRIT 38 % (39-51); HEMOGLOBIN 11.9 g/dL (13.5-17.5); LYMPHOCYTES # (AUTO) 0.9 /CMM (0.8-4.8); LYMPHOCYTES % (AUTO) 8.7 % (20.0-44.0); MEAN CORPUSCULAR HGB CONC 32 g/dl (31.0-36.0); MEAN CORPUSCULAR VOLUME 69 fL (80-96); MONOCYTES # (AUTO) 0.8 /CMM (0.1-1.30); MONOCYTES % (AUTO) 7.6 % (2.0-12.0); NEUTROPHILS # (AUTO) 8.4 /CMM (1.8-8.9); NEUTROPHILS % (AUTO) 81.4 % (43.0-81.0); PLATELET COUNT (AUTO) 263 /CMM (150-450); RED BLOOD CELL COUNT(AUTO) 5.48 MIL/uL (4.5-6.0); WHITE BLOOD COUNT (AUTO) 10.3 K/uL (4.3-11.0)
[2020-04-07] MEDS: BLOOD SUGAR DIAGNOSTIC 1 EACH STRIP IN SCH ×4 (06:45→21:49)
[2020-04-07] MEDS: ENOXAPARIN SODIUM 40 MG/0.4 ML DISP.SYRIN SQ SCH ×2 (06:45→17:44)
--- NOTE | 2020-04-07 07:00 | NUR ---
TELE/RN CLOSING NOTES PATIENT IN BED RESTING. PATIENT IS ALERT AND ORIENTED X 3. STATES NO PAIN AT THIS TIME. PATIENTS BREATHING IS EVEN AND UNLABORED. NO SIGNS OF RESPIRATORY DISTRESS NOTED. PATIENT HAS IV ACCESS ON LEFT AC #20G AND RIGHT WRIST #20G INTACT. PATIENT TOLERATING 3L NC WELL . ALL PATIENT NEEDS HAVE BEEN MET DURING SHIFT. SAFETY MEASURES ARE IN PLACE, BED IS LOCKED AND PLACED IN THE LOWEST POSITION, CALL LIGHT IS WITHIN REACH. WILL ENDORSE CARE TO DAY SHIFT NURSE.
[2020-04-07 07:03] LABS: ALBUMIN 2.3 g/dL (3.4-5.0); BILIRUBIN,DIRECT 0.2 mg/dL (0.0-0.2); BILIRUBIN,TOTAL 0.4 mg/dL (0.2-1.0); CALCIUM, SERUM 8.2 mg/dL (8.5-10.1); CREATININE 1.2 mg/dL (0.6-1.3); POTASSIUM 3.9 mmol/L (3.5-5.1); TOTAL PROTEIN, SERUM 6.4 g/dL (6.4-8.2)
--- NOTE | 2020-04-07 07:52 | NUR ---
OPEN NOTES PATIENT IS SLEEPING ON 2L NASAL CANNULA SPO2 97% WITH NO SIGNS OF DISTRESS. IV L AC#20G INTACT AND R WRIST #20G. ON TELE MONITOR SR 79. NO COMPLAIN OF PAIN AT THIS TIME. SAFETY MEASURES ARE APPLIED BED IS IN THE LOWEST POSITION SIDE RAILS UP X 2. CALL LIGHT WITHIN REACH WILL CONTINUE TO MONITOR.
[2020-04-07 08:00] VITALS: BP 102/63
[2020-04-07] MEDS: DEXAMETHASONE SOD PHOSPHATE 10 MG/ML VIAL IV SCH (08:40)
[2020-04-07] MEDS: PANTOPRAZOLE 40 MG/PACK PACK PO SCH ×2 (08:40→20:06)
[2020-04-07] MEDS: GLUCERNA SHAKE 237 ML CAN PO SCH ×2 (08:41→17:34)
[2020-04-07 10:31] LABS: LYMPHOCYTES % (MANUAL) 2 % (16-48); MONOCYTES % (MANUAL) 8 % (0-11.0); NEUTROPHILS % (MANUAL) 90 (42-76)
[2020-04-07 12:00] VITALS: BP_SYST 129; BP_SYST 130; BP_DIAS 68; BP_DIAS 75
[2020-04-07] MEDS: INSULIN REGULAR, HUMAN 100 UNIT/ML 3 ML VIAL SQ PRN ×3 (12:25→21:54)
[2020-04-07] MEDS: REMDESIVIR (CHARGED) 100 MG in IV NS 0.9% 100 ML IV SCH (12:58)
[2020-04-07 16:00] VITALS: BP 106/60
--- NOTE | 2020-04-07 19:00 | NUR ---
CLOSING NOTES PATIENT IS A/O X 4 ON 2L NASAL CANNULA SPO2 94% WITH NO SIGNS OF DISTRESS. IV R WRIST #20G. ON TELE MONITOR SB 58. NO COMPLAIN OF PAIN AT THIS TIME. PATIENT KEPT CLEAN AND DRY. ALL NEEDS, CARE, TREATMENT, AND MEDICATIONS WERE ADMINISTERED ANTICIPATED PER ORDER. SAFETY MEASURES ARE APPLIED, BED IS IN LOW POSITION SIDE RAILS UP X 2. CALL LIGHT WITHIN REACH WILL ENDORSE TO THE SERVICE OR WORK DISPATCHER CHIEF NURSE.
--- NOTE | 2020-04-07 19:30 | NUR ---
windows infrastructure engineer opening notes Pt is resting in bed comfortably. Pt is alert and orientedX3-4. Respiration is on 2 L NC. No SOB. No S/S of distress noted. IV site at R wrist # 20 is clean, intact and flushes well, SL. Tele monitor showed SR hr at 75 bpm. Safety precautions is maintained. Bed at low position, brakes locked, side rails upX2, hob elevated, and call light is within reach. Will continue to monitor.
[2020-04-07 20:00] VITALS: BP 93/55
[2020-04-08] VITALS: BP 128/66
[2020-04-08 04:00] VITALS: BP 115/50
[2020-04-08] MEDS: ENOXAPARIN SODIUM 40 MG/0.4 ML DISP.SYRIN SQ SCH ×2 (05:01→18:48)
--- NOTE | 2020-04-08 07:00 | NUR ---
broom handle dipper closing notes Pt is resting in bed comfortably. Pt is alert and orientedX3-4. Respiration is on 2 L NC. No SOB. No S/S of distress noted. Tele monitor showed S apurva Hr at 58 bpm. IV site at R wrist # 20 is clean, intact and SL. VS is stable. Afebrile. Routine meds were given as ordered. Kept Pt clean, dry and comfortable. All need met and attended, Safety precautions is maintained. Bed at low position, brakes locked, side rails upX2, hob elevated and call light is within reach. Will endorse to morning nurse for HEATHER.
[2020-04-08] MEDS: BLOOD SUGAR DIAGNOSTIC 1 EACH STRIP IN SCH ×4 (07:04→22:00)
[2020-04-08] MEDS: INSULIN REGULAR, HUMAN 100 UNIT/ML 3 ML VIAL SQ PRN ×3 (07:05→17:49)
[2020-04-08 07:25] LABS: BASOPHILS # (AUTO) 0.1 /CMM (0.0-0.2); BASOPHILS % (AUTO) 0.8 % (0.0-2.0); EOSINOPHILS % (AUTO) 2.4 % (0.0-6.0); HEMATOCRIT 38 % (39-51); HEMOGLOBIN 11.8 g/dL (13.5-17.5); LYMPHOCYTES % (AUTO) 11.3 % (20.0-44.0); MEAN CORPUSCULAR HGB CONC 31 g/dl (31.0-36.0); MEAN CORPUSCULAR VOLUME 69 fL (80-96); MONOCYTES # (AUTO) 0.7 /CMM (0.1-1.30); MONOCYTES % (AUTO) 7.6 % (2.0-12.0); NEUTROPHILS % (AUTO) 77.9 % (43.0-81.0); PLATELET COUNT (AUTO) 270 /CMM (150-450); RED BLOOD CELL COUNT(AUTO) 5.44 MIL/uL (4.5-6.0); WHITE BLOOD COUNT (AUTO) 8.9 K/uL (4.3-11.0)
--- NOTE | 2020-04-08 07:25 | NUR ---
TELE/RN OPENING NOTES PATIENT RECEIVED IN BED. A/O X3-4. AFEBRILE. DENIES ANY PAIN. IN NO APPARENT DISTRESS. NC ON 2L/MIN, SA02 92%. R WRIST #20 SL. PROVIDED SAFETY MEASURES. BED IN LOWEST POSITION, LOCKED. SIDE RAILS UP X2. CALL LIGHT WITHIN REACH. WILL CONTINUE PLAN OF CARE.
[2020-04-08 07:36] LABS: ALBUMIN 2.3 g/dL (3.4-5.0); BILIRUBIN,TOTAL 0.5 mg/dL (0.2-1.0); CALCIUM, SERUM 8.2 mg/dL (8.5-10.1); CREATININE 1.1 mg/dL (0.6-1.3); POTASSIUM 3.6 mmol/L (3.5-5.1); TOTAL PROTEIN, SERUM 6.4 g/dL (6.4-8.2)
[2020-04-08 08:00] VITALS: BP 121/52
[2020-04-08] MEDS: PANTOPRAZOLE 40 MG/PACK PACK PO SCH ×2 (08:38→22:03)
[2020-04-08] MEDS: DEXAMETHASONE SOD PHOSPHATE 10 MG/ML VIAL IV SCH (08:38)
[2020-04-08] MEDS: GLUCERNA SHAKE 237 ML CAN PO SCH ×2 (08:48→17:47)
[2020-04-08 16:00] VITALS: BP 115/66
--- NOTE | 2020-04-08 19:45 | NUR ---
TELE/RN CLOSING NOTES PATIENT RECEIVED IN BED. A/O X3-4. AFEBRILE. DENIES ANY PAIN. NO SOB. NO S/SX OF RESPIRATORY DISTRESS. NC ON 2L/MIN. R WRIST #20 SL. ROUTINE MEDS WERE GIVEN. PROVIDED SAFETY MEASURES. BED IN LOWEST POSITION, LOCKED. SIDE RAILS UP X2. CALL LIGHT WITHIN REACH. WILL CONTINUE PLAN OF CARE.
[2020-04-08 20:00] VITALS: BP 124/66
--- NOTE | 2020-04-08 22:03 | NUR ---
REFUSED ACCUCHECK. PATIENT BEING DISCHARED TO HOME. REVIEWED DISCHARGE INSTRUCTIONS WITH DAUGHTER MARTIN MCKEON. PT HAS WALKER AND HOME OXYGEN TO TAKE HOME. PT IN NO APPARENT DISTRESS ON 2LNC . GETTING DRESSED. PER MARTIN WILL BE LEAVING SOON. REVIEWED DISCHARGE INSTRUCTIONS. IV REMOVED FROM RIGHT WRIST CATHETER INTACT NO S/S OF COMPLICATIONS.
--- NOTE | 2020-04-08 22:40 | NUR ---
patient escorted via [facility] out to private vehicle on patients own portable o2 nc at 2lnc being taken home by daughter rachel in private vehicle. pt in no apprent distress. discharging to home.
== END 2020-04-08 22:40 | disposition home health service (06) | DRG 177 ==
LOC: ER 21:10 → TELE2 03-30 00:17
PROVIDERS: ADMIT Nurse Practitioner Acute Care
PROC: XW033E5 Introduction of Remdesivir Anti-infective into Peripheral Vein, Percutaneous Approach, New Technology Group 5 (ICD-10-PCS; principal; 2020-04-03)
PROC: XW13325 Transfusion of Convalescent Plasma (Nonautologous) into Peripheral Vein, Percutaneous Approach, New Technology Group 5 (ICD-10-PCS; 2020-04-03)
DX: U07.1 COVID-19 (principal); N17.0 Acute kidney failure with tubular necrosis; J96.01 Acute respiratory failure with hypoxia; J12.82 Pneumonia due to coronavirus disease 2019; J15.9 Unspecified bacterial pneumonia; E44.1 Mild protein-calorie malnutrition; E87.1 Hypo-osmolality and hyponatremia; E86.0 Dehydration; D50.9 Iron deficiency anemia, unspecified; I10 Essential (primary) hypertension; E11.9 Type 2 diabetes mellitus without complications; D69.6 Thrombocytopenia, unspecified; D53.9 Nutritional anemia, unspecified; E86.1 Hypovolemia; H91.10 Presbycusis, unspecified ear; R53.1 Weakness; E88.09 Other disorders of plasma-protein metabolism, not elsewhere classified; Z68.23 Body mass index [BMI] 23.0-23.9, adult; N13.9 Obstructive and reflux uropathy, unspecified; T38.0X5A Adverse effect of glucocorticoids and synthetic analogues, initial encounter; Y92.89 Other specified places as the place of occurrence of the external cause; D72.828 Other elevated white blood cell count
CPT/HCPCS: 36415; 36600; 71045-TC; 80048-TC; 80053-TC; 80061-TC; 80076-TC; 81001; 82550-TC; 82728-TC; 82803-TC; 82962-TC; 83605-TC; 83615-TC; 83690-TC; 83735-TC; 83880; 84100-TC; 84484-TC; 85025-TC; 85378-TC; 85385-TC; 85610-TC; 85730-TC; 86140-TC; 86480; 86850-TC; 87040-TC; 87081-TC; 87086-TC; 97116-TC; 97530-TC; A4216; C9113; C9803; G0378; J0696; J1100; J1200; J1644; J1650; J1815; J3262; J7030; J7050; J7060; P9017-BL